=== PATIENT | male | born 1960 | race Caucasian/White ===

== ENCOUNTER 2019-08-20 10:05 | Outpatient (CLI) | payer BC, SELFPAY ==
--- NOTE | ~2019-08-20 | XR_ITS ---
XR knee RT 3V 08/20/2019 10:39 Indication: Right knee pain Procedure: 3 views right knee Comparison: 01/11/2018 Findings: There is mild osteoarthritis of the right knee. No fracture, subluxation or dislocation. No significant joint effusion. Impression: 1: Mild osteoarthritis of the right knee. Reviewed, dictated and finalized at location A. [employer] Impression: 1: Mild osteoarthritis of the right knee.
== END 2019-08-20 10:06 | disposition home or self-care (01) ==
PROVIDERS: PCP Nurse Practitioner Family; Visit Provider Nurse Practitioner Family
DX: M25.561 Pain in right knee (principal)
CPT/HCPCS: 73562

== ENCOUNTER 2020-06-03 08:01 | Outpatient (RCR) | payer BC, SELFPAY ==
--- NOTE | 2020-06-03 09:08 | PTOPEVAL ---
Thank you for referring Lokesh Gonzalez to [facility].? The patient is scheduled to be seen for therapy? ____x/week for ___ weeks. Please review, sign, date and return this plan of care JONATHAN. I agree with and certify that the following plan of care is medically necessary. Referring Physician Date Admitting Provider: Attending Provider: PHYSICIAN NOT ON STAFF Referring Provider: *PT Outpatient Evaluation Start: 06/03/20 08:04 Freq: Status: Active Protocol: Document 06/03/20 08:05 RENNY (Rec: 06/03/20 09:07 [id number] Therapy Assessment Status Assessment Status Assessment Status Evaluation Evaluation Information Problem Diagnosis R kene pain, lateral meniscus tear, OA Onset 05/14/20 Additional Evaluation Detail LEFS = 48% functionally declined Subjective Information patient reports he had been Query Text:As Reported By Patient/ having pain in the R knee for Family about a year prior to having surgery on the R knee. he reports he then had arthroscopic surgery on the R knee on 05/14/20. he reports immediately after surgery the knee felt great. however, since afte the first few days, he has been having increased pain in the outside of the R knee, difficulty bending his knee, and weakness in the R LE . he reports difficulty with going up and down steps, getting out of bed, sleeping on his R side, squatting, and taking care of the farm. Prior Level of Function Comments Additional Prior Level of Function he reports he has been having Comments issues in the R knee for over a year. however, he reports now his pain is worse. Pain Assessment Timing of Pain Assessment Timing of Pain Assessment Assessment Pain Scale Pain Scale Used Numeric (1 - 10) Self Report Pain Assessment Right Knee(s) Reported Pain Level 7 Lowest Pain Intensity 2 Greatest Pain Intensity 9 Pain Score Pain Score 7: Self Report Additional Pain Score Comments ice and elevation help to relieve the pain greatly Interventions Used Interventions Used By Clinicians Activity or ADL's,Education,
--- NOTE | 2020-06-17 08:19 | PTOPEVAL ---
Thank you for referring Lokesh Gonzalez to [facility].? The patient is scheduled to be seen for therapy? ____x/week for ___ weeks. Please review, sign, date and return this plan of care JONATHAN. I agree with and certify that the following plan of care is medically necessary. Referring Physician Date Admitting Provider: Attending Provider: PHYSICIAN NOT ON STAFF Referring Provider: *PT Outpatient Evaluation Start: 06/03/20 08:04 Freq: Status: Active Protocol: Document 06/17/20 07:00 [facility] (Rec: 06/17/20 08:19 [facility] [id number]) Therapy Assessment Status Assessment Status Assessment Status Re-evaluation Evaluation Information Problem Diagnosis R knee pain, lateral meniscus tear, OA Pain Assessment Timing of Pain Assessment Timing of Pain Assessment Assessment Pain Scale Pain Scale Used Numeric (1 - 10) Self Report Pain Assessment Right Knee(s) Reported Pain Level 5 Lowest Pain Intensity 3 Greatest Pain Intensity 9 Pain Score Pain Score 5: Self Report Additional Pain Score Comments increased pain with bending R knee decreased pain with rest, ice, and elevation Interventions Used Interventions Used By Clinicians Activity or ADL's,Education, Elevation,Exercise,Ice Lower Extremity Range of Motion Knee Range of Motion Right Knee Flexion Range of Motion - Active 127 Knee Flexion Range of Motion - Passive 130 Knee Extension Range of Motion - Active 0 Query Text: Lower Extremity Muscle Strength Testing Hip Strength Right Hip Flexion Strength 4+ Good + Left Hip Flexion Strength 4+ Good + Knee Strength Right Knee Flexion Strength 5 Normal Knee Extension Strength 4+ Good + Left Knee Flexion Strength 5 Normal Knee Extension Strength 5 Normal Muscle Length Testing Muscle Length Testing Left Hamstring Length 20 Query Text:(90 - 90 Position) Right Hamstring Length 30 Query Text:(90 - 90 Position) Palpation Assessment Palpation Palpation tenderness to palpation of the distal ITB band just distal to the lateral jt line of the R knee. Special Tests-Lower Extremity Knee Special Tests Valgus Stress Test Knee at 0 Degrees Negative Right Varus Stress Test Knee at 0 Degrees Negative Right Abhinav's Negative Right Gait Assessment Gait Assessment Additional Ambulation Comments patient ambulates with bilateral step through mechanics with equ
== END 2020-07-07 09:41 | disposition home or self-care (01) ==
LOC: CHSPT 08:01
DX: M25.561 Pain in right knee (principal); S83.281D Other tear of lateral meniscus, current injury, right knee, subsequent encounter
CPT/HCPCS: 97016; 97110; 97140; 97161

== ENCOUNTER 2020-08-14 06:11 | Outpatient (CLI) | payer BC, SELFPAY ==
[2020-08-14 23:53] LABS: SARS-CoV-2 RNA PCR Negative
== END 2020-08-14 06:12 | disposition home or self-care (01) ==
LOC: CHSLAB 06:14
PROVIDERS: PCP Family Medicine; Visit Provider Family Medicine
DX: Z01.818 Encounter for other preprocedural examination (principal); Z20.822 Contact with and (suspected) exposure to COVID-19
CPT/HCPCS: C9803; U0003; U0005

== ENCOUNTER 2020-08-19 08:43 | Outpatient (RCR) | payer BC, SELFPAY ==
--- NOTE | 2020-08-19 10:07 | PTOPEVAL ---
Thank you for referring Lokesh Gonzalez to [facility].? The patient is scheduled to be seen for therapy? __2__x/week for 8 visits. Please review, sign, date and return this plan of care JONATHAN. I agree with and certify that the following plan of care is medically necessary. Referring Physician Date Admitting Provider: Attending Provider: IVONE COSME Referring Provider: FrankPT Outpatient Evaluation Start: 08/19/20 09:01 Freq: Status: Active Protocol: Document 08/19/20 09:01 KENDRA (Rec: 08/19/20 09:58 KENDRA [id number]) Therapy Assessment Status Assessment Status Assessment Status Evaluation Evaluation Information Problem Diagnosis right TKA Onset 08/17/20 Subjective Information Pt. reports that he underwent Query Text:As Reported By Patient/ right TKA on 08/17/20. He Family states that he returned home the same day. Pt. reports berforing no specific exercise routine currently, except walking. He states that bending the knee is the most difficult task. 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 He states that his goal is to be able to bend the knee and walk normal. Prior Level of Function Activity Level (Last 3 Months) Occupation conteh Hand Dominance Right Activity of Daily Living Ability Independent Indoor/Home Mobility Independent Community Mobility Independent Stairs Ability Independent Functional Cognition (Planning, Shopping Independent , Taking Medications) Cooking Yes Cleaning Yes Laundry Yes Shopping Yes Driving Yes Pain Assessment Pain Scale Pain Scale Used Numeric (1 - 10) Self Report Pain Assessment Right Knee(s) Reported Pain Level 5 Pain Aggravating Factors Bending Pain Score Pain Score 5: Self Report Interventions Used Interventions Used By Clinicians Compression Pump,Elevation, Exercise,Ice Lower Extremity Range of Motion General Lower Extremity Range of Motion Gross Lower Extremity Range of Motion right knee AROM 0-95 degrees Comments Lower Extremity Muscle Strength Testing General Lower Extremity Strength Gross Lower Extremity Strength -right hip flexion 3-/5 -right knee extensi
--- NOTE | 2020-09-10 13:36 | PTOPEVAL ---
Thank you for referring Lokesh Gonzalez to [facility].? The patient is scheduled to be seen for therapy? ___2_x/week for 4 visits. Please review, sign, date and return this plan of care JONATHAN. I agree with and certify that the following plan of care is medically necessary. Referring Physician Date Admitting Provider: Attending Provider: IVONE COSME Referring Provider: *PT Outpatient Evaluation Start: 08/19/20 09:01 Freq: Status: Active Protocol: Document 09/10/20 13:23 KENDRA (Rec: 09/10/20 13:36 KENDRA [id number]) Therapy Assessment Status Assessment Status Assessment Status Progress Evaluation Information Problem Diagnosis right TKA Onset 08/17/20 Subjective Information Pt. reports that he is still Query Text:As Reported By Patient/ dealing with pain in the right Family knee and leg. He states that he has returned to driving and is attempting to walk without his cane. He states that he still notices swelling in the right knee limiting his mobility and resulting in stiffness. He states that he would like to improve his ROM more prior to discharge. Pain Assessment Timing of Pain Assessment Timing of Pain Assessment Pre-Treatment Pain Scale Pain Scale Used Numeric (1 - 10) Self Report Pain Assessment Right Knee(s) Reported Pain Level 2 Pain Score Pain Score 2: Self Report Interventions Used Interventions Used By Clinicians Activity or ADL's,Compression Pump,Exercise Lower Extremity Range of Motion General Lower Extremity Range of Motion Gross Lower Extremity Range of Motion right knee AROM 0-115 degrees Comments Lower Extremity Muscle Strength Testing General Lower Extremity Strength Gross Lower Extremity Strength right hip flexion 4/5 right knee flexion 4+/5 right knee extension 4/5 Pt. is able to complete 20 SLR with pain noted during activity Extremity Circumference Assessment Circumference Assessment Location Right Body Part Knee Site Descriptor ([place]) joint line Circumference (cm) 51 Gait Assessment Gait Assessment Additional Ambulation Comments Pt. ambulates over level surface without an AD demonstrating slightly decreased right sta
--- NOTE | 2020-09-23 10:25 | PTOPEVAL ---
Thank you for referring Lokesh Gonzalez to [facility].? The patient is scheduled to be seen for therapy? ____x/week for ___ weeks. Please review, sign, date and return this plan of care JONATHAN. I agree with and certify that the following plan of care is medically necessary. Referring Physician Date Admitting Provider: Attending Provider: IVONE COSME Referring Provider: *PT Outpatient Evaluation Start: 08/19/20 09:01 Freq: Status: Active Protocol: Document 09/23/20 08:55 RENNY (Rec: 09/23/20 10:24 RENNY [email or web address]) Therapy Assessment Status Assessment Status Assessment Status Re-evaluation Evaluation Information Problem Diagnosis right TKA Onset 08/17/20 Additional Evaluation Detail LEFS = 36% functionally declined Subjective Information patient reports he feels good Query Text:As Reported By Patient/ this date. he reports he was Family just at the ortho for follow up yesterday. he reports he is doing well, but still has tightness in the R knee. he reports he has a new order form the MD to continue skilled PT for 4 more weeks. patient reports tightness is mostly located to the lateral R thigh and posterior R thigh. Pain Assessment Timing of Pain Assessment Timing of Pain Assessment Assessment Self Report Self Report Pain Level 0 Pain Score Pain Score 0: Self Report Additional Pain Score Comments patient reports no pain, but tightness with bending still of the R knee. Interventions Used Interventions Used By Clinicians Activity or ADL's,Education, Exercise,Manual Therapy Techniques Lower Extremity Range of Motion General Lower Extremity Range of Motion Gross Lower Extremity Range of Motion right knee AROM 0-120 degrees Comments Lower Extremity Muscle Strength Testing General Lower Extremity Strength Gross Lower Extremity Strength right hip flexion 4+/5 right knee flexion 5/5 right knee extension 4+/5 Muscle Length Testing Muscle Length Testing Left Hamstring Length 30 Query Text:(90 - 90 Position) Right Hamstring Length 40 Query Text:(90 - 90 Position) Palpation Assessment Palpation Palpation patient presents with pain with palpation of the R distal ITB and R distal hamstrings
--- NOTE | 2020-10-19 08:43 | PCPTNOTE ---
Patient called and stated that he went to the MD and they were pleased with his progress and would like to cancel all further appointments. Please refer to last treatment note for patient's discharge status. Thank you, CLAUDE DeckerT
== END 2020-10-08 15:42 | disposition home or self-care (01) ==
LOC: CHSPT 08:43
DX: M25.561 Pain in right knee (principal); M17.11 Unilateral primary osteoarthritis, right knee; Z96.651 Presence of right artificial knee joint
CPT/HCPCS: 97016; 97110; 97112; 97140; 97161; 97530

== ENCOUNTER 2021-04-14 08:48 | Emergency (ER) | payer BC, SELFPAY ==
[2021-04-14 08:55] VITALS: BP 164/104; PULSE 94; RESP 18; TEMP 36.2; O2SAT 98
--- NOTE | 2021-04-14 09:00 | PC.NURSE ---
Left hand laceration on left index finger cleaned with normal saline and hibiclens.
--- NOTE | 2021-04-14 09:01 | ED.GENADULT ---
HPI - General Adult General Chief complaint: Wound/Laceration Stated complaint: CUT HAND Source: patient Mode of arrival: ambulatory Limitations: no limitations History of Present Illness HPI narrative: Lokesh is a 60M with a PMH of OA, psoriasis, ED, MARGARET, HLD, COPD, HTN, DMII, GERD, hx of CRC, Hx of PE on elaquis that presented to the ED with a laceration on the posterior side of his left hand. He was working on a light fixture when it slipped and he cut the back of his hand on a screw. He had no other injuries. Related Data Home Medications Medication Instructions Recorded Confirmed apixaban 5 mg tablet 5 mg PO BID 06/18/19 04/14/21 aspirin 81 mg chewable tablet 81 mg PO DAILY 06/18/19 04/14/21 beclomethasone dipropionate 80 1 inhalation INHALATION Q12H 06/18/19 04/14/21 mcg/actuation HFA breath activated aerosol cetirizine 10 mg capsule 10 mg PO DAILY 06/18/19 04/14/21 ferrous sulfate 325 mg (65 mg 325 mg PO BID 06/18/19 04/14/21 iron) tablet fluticasone fur. 100 mcg-umeclid 1 inhalation INHALATION DAILY 06/18/19 04/14/21 62.5 mcg-vilant 25 mcg inhalat.powder gabapentin 300 mg capsule 900 mg PO .QHS cap 06/18/19 04/14/21 Benadryl 25 mg PO HS 04/14/21 04/14/21 Otezla 30 mg PO BID 04/14/21 04/14/21 Ozempic 0.5 mg PER PKG DIR 04/14/21 04/14/21 atorvastatin 40 mg PO HS 04/14/21 04/14/21 eszopiclone 2 mg PO HS 04/14/21 04/14/21 metformin 500 mg PO BID 04/14/21 04/14/21 montelukast [Singulair] 10 mg PO HS 04/14/21 04/14/21 Allergies Allergy/AdvReac Type Severity Reaction Status Date / Time No Known Allergies Allergy Verified 04/14/21 09:03 Review of Systems Constitutional: Constitutional: Reports no additional constitutional complaints Eyes: Eyes: Reports no additional eye complaints ENT: Reports system reviewed and no additional complaints, except as documented Cardiovascular: Cardiovascular: Reports no additional cardiovascular complaints Respiratory: Respiratory: Reports no additional respiratory complaints Gastrointestinal: Gastrointestinal: Reports no additional gastrointestinal complaints Genitourinary: Genitourinary: Reports no additional male genitourinary complaints Musculoskeletal: Musculoskeletal: Reports no additional musculoskeletal complaints Integumentary/Breasts: Skin/Breast: Reports as per HPI Neurologic: Reports system reviewed and no additional complaints, except as documented Psychiatric: Psychiatric: Reports no additional psychiatric complaints Endocrine: Endocrine: Reports no additional endocrine complaints Hematologic/Lymphatic: Hematologic/Lymphatic: Reports no additional hematologic/lymphatic complaints Allergic/Immunologic: Allergic/Immunologic: Reports no additional allergic/immunologic complaints [facility] Past Medical History Medical History Basal cell carcinoma COPD (chronic obstructive pulmonary disease) Diabetes mellitus with cardiac complication Encounter for removal of skin lesion Erectile dysfunction GERD (gastroesophageal reflux disease) History of basal cell carcinoma Nose History of colorectal cancer s/p Transcerse Colectomy History of esophageal cancer 2006 s/p Radiation/Chemo History of pulmonary embolus (PE) Hyperlipidemia associated with type 2 diabetes mellitus Hypertension associated with diabetes Insomnia Major depressive disorder in partial remission Obesity Orthostatic hypotension Peripheral neuropathy due to chemotherapy Psoriasis Sleep apnea Surgical History Surgical History History of colectomy Transverse Colectomy 07/15 Family History Family History Father Heart disease Mother COPD (chronic obstructive pulmonary disease) Social History Social History Smoking status: Former smoker
[2021-04-14] MEDS: TETANUS,DIPHTHERIA,AC PERTUSSIS ADULT 0.5 ML (ADACEL) IM (09:58)
[2021-04-14] MEDS: AMOXICILLIN/CLAVULANATE K 875-125 MG TAB 1 TABLET PO (10:41)
[2021-04-14 11:07] VITALS: BP 150/92; PULSE 88; RESP 18; TEMP 36.6; O2SAT 95
== END 2021-04-14 11:09 | disposition home or self-care (01) ==
PROVIDERS: Emergency Provider Family Medicine
DX: S61.412A Laceration without foreign body of left hand, initial encounter (principal); W45.8XXA Other foreign body or object entering through skin, initial encounter
CPT/HCPCS: 12002; 90471; 90715; 99283; A9270

== ENCOUNTER 2022-04-19 12:30 | Outpatient (CLI) | payer BC, SELFPAY ==
--- NOTE | ~2022-04-19 | US_ITS ---
EXAMINATION: US renal BI DATE: 04/19/2022 14:47 INDICATION: Left kidney hydronephrosis. TECHNIQUE: Multiple ultrasound grayscale images of the kidneys were obtained. COMPARISON: CT abdomen and pelvis 08/19/2015 FINDINGS: The right kidney measures 10.8 x 6.7 x 6.5 cm. The left kidney measures 12.3 x 5.6 x 5.7 cm. The kidn eys demonstrate normal parenchymal echogenicity. There is mild left hydronephrosis. The bladder is no rmal. The liver demonstrates coarsened echotexture. There are ill-defined 8.4 cm and 3.1 cm hyperecho ic masses in the liver. IMPRESSION: 1. Mild left hydronephrosis. 2. Heterogeneous liver with ill-defined masses suspicious for malignancy. Comparison with outside joya ging is recommended. If none is available, consider abdomen MRI without and with contrast. Reviewed, dictated and finalized at location A. IMPRESSION: 1. Mild left hydronephrosis. 2. Heterogeneous liver with ill-defined masses suspicious for malignancy. Edison rison with outside imaging is recommended. If none is available, consider abdom en MRI without and with contrast.
== END 2022-04-19 12:31 | disposition home or self-care (01) ==
LOC: CHSIMG 12:35
DX: N13.30 Unspecified hydronephrosis (principal)
CPT/HCPCS: 76775